=== PATIENT | female | born 1990 | race Caucasian/White ===

== ENCOUNTER 2025-04-20 23:10 | Emergency (ER) | payer BC, SELFPAY ==
[2025-04-20 23:23] VITALS: BP 134/92
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
[2025-04-21] MEDS: NICODERM TRANSDERMAL 14 MG TRANSDERM (00:46)
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
--- NOTE | 2025-04-21 02:03 | EDRN ---
Addendum entered by Columba Mcelroy RN 04/21/25 03:19:
[facility] Consultant # [phone]
Jayme Garvin Nursing # [id number]
Original Note:
Patient being monitored by 1:1 outside room in room 34. pt seen walking out of room multiple times, able to be redirected back into room by tech, pt verbalizes understanding that she needs to stay in the room for patient for her safety and other
patient's safety each time patient walked out of room. dr logan made aware, will be back to speak with patient. pt stating she thought she had nicotine lozenges in her pocket on arrival, unable to locate on patient, in the bed, in the room, or
bathroom. offered pt nicotine patch, verbal order received by dr logan, pt back out of room asking for nicotine patch. pt redirected into room and nicotine patch placed on upper left scapula. around 1:15 pt again left room, states she does not
like her room or the tech assigned as her 1:1 and was unable to be redirected back to room. dr logan, security and hemodialysis charge nurse made aware. per DO and crisis, pt is not 302 and cleared by them so patient can walk out if she wants. patient brought
back to room 32 from triage area by hemodialysis charge nurse and security. pt verbalized that she understands that she needs to stay in her room. pt again out of room and able to be redirected into room by rn, tech and security. pt seen in doorway without any
clothes and talking to herself. pt again attempting to leave room fully clothed, when rn, tech, and security tried to get patient back into room, pt began to escalate and yelled, 'im going to melva this place and burn it to the ground.' dr logan
made aware. patient able to be redirected into room. pt again leaving room saying she is leaving, pt stopped by dr logan in hallway who directed pt back into room and spoke to patient in room. per dr logan pt promises to stay in room. almost
immediately after dr logan left room and hallway, pt again out of room and walking toward exit. security, tech, and rn attempted to redirect patient back into room without success, pt seen walking out of department through doors by room 35.
security compliance specialist notified the rest of security, charge nurse made aware, dr logan made aware. police called for patient elopement. crisis told this rn that pt was found sitting on bench outside of emergency room entrance. security staying with
patient until police arrived.
multiple attempts made to call [facility], with messages left by this rn and crisis; @00:20, 00:30, 01:11, 01:20. able to speak to facility at 02:07, spoke to job site supervisor and nurse who refused to take patient back. crisis and "Carlos"doreen made aware
--- NOTE | 2025-04-21 02:08 | EDRN ---
"Primary care RN, Columba Moody RN, notified this RN that the patient was attempting to leave. Security was notified. Dr. Canales notified. The patient is not a 302 at this time. The facility the patient is from refused to have the patient return. "Carlos"Parker spoke with the patient. The patient then left [facility]. Dr. Canales aware. [place] police called."
--- NOTE | 2025-04-21 02:22 | EDRN ---
This RN witnessed this pt. state, 'I am going to melva this whole place and I am going to burn this whole place down'. Multiple staff members present during pt. making this threat. Crisis made aware.
== END 2025-04-21 02:30 | disposition left against medical advice (07) ==
LOC: EMR 23:10
PROVIDERS: EMERGENCY PHYSICIAN Student in an Organized Health Care Education/Training Program
DX: F30.9 Manic episode, unspecified (principal)
CPT/HCPCS: 99282